=== PATIENT | female | born 1950 | race Caucasian/White ===

== ENCOUNTER 2017-09-25 13:11 | Outpatient (RCR) | payer MEDICARE, OTHER | END 2017-10-08 | disposition home or self-care (01) | LOC: WCC 13:11 | DX: T86.828 Other complications of skin graft (allograft) (autograft) (principal); M19.90 Unspecified osteoarthritis, unspecified site | CPT/HCPCS: G0463 ==

== ENCOUNTER 2017-09-25 14:16 | Outpatient (RCR) | payer SELFPAY | END 2017-10-08 | disposition home or self-care (01) | LOC: WCC 14:16 | DX: T86.828 Other complications of skin graft (allograft) (autograft) (principal) | CPT/HCPCS: G0277 ×8 ==

== ENCOUNTER 2017-10-09 11:12 | Outpatient (RCR) | payer SELFPAY | END 2017-11-05 | disposition home or self-care (01) | LOC: WCC 11:12 | DX: T86.828 Other complications of skin graft (allograft) (autograft) (principal); M19.90 Unspecified osteoarthritis, unspecified site | CPT/HCPCS: G0277 ×7 ==

== ENCOUNTER 2017-11-10 15:37 | Outpatient (RCR) | payer SELFPAY | END 2017-12-06 | disposition home or self-care (01) | LOC: WCC 15:37 | DX: T86.828 Other complications of skin graft (allograft) (autograft) (principal); M19.90 Unspecified osteoarthritis, unspecified site | CPT/HCPCS: G0277 ×9 ==